=== PATIENT | male | born 1980 | race Caucasian/White ===

== ENCOUNTER 2022-10-20 09:00 | Day surgery (SDC) | payer OTHER ==
[2022-10-19 12:45] VITALS: BMI 29.6
[2022-10-20] MEDS ORDERED: Oxymetazoline HCl 0.05% (30 ML BOT) ONE (09:46)
[2022-10-20] MEDS ORDERED: Midazolam HCl 2 mg/2 ml Vial ONE (10:40)
[2022-10-20] MEDS ORDERED: Lidocaine 1% (PF) 30 ML VIAL ONE (10:52)
[2022-10-20] MEDS ORDERED: fentaNYL PF 100 MCG/2 ML SYRINGE ONE (10:57)
[2022-10-20] MEDS ORDERED: NEOSTIGMINE 3 MG/3 ML SYR 3 MG/3 ML SYRINGE ONE (11:07)
[2022-10-20] MEDS ORDERED: PROPOFOL 200 MG/20 ML VIAL ONE (11:07)
[2022-10-20] MEDS ORDERED: Rocuronium Bromide 10 MG/ML (10ML VIAL) ONE (11:07)
[2022-10-20] MEDS ORDERED: Glycopyrrolate 0.2 MG/ML 5 ML SYRINGE ONE (11:07)
[2022-10-20] MEDS ORDERED: Ondansetron PF 4 MG/2 ML Vial ONE (11:07)
[2022-10-20] MEDS ORDERED: FENTANYL 50 MCG/ML 1 ML VIAL ONE ×4 (11:43→12:20)
[2022-10-20] MEDS ORDERED: HYDROcodone/Acetaminophen 5/325 mg Tablet ONE (13:34)
== END 2022-10-20 13:45 | disposition home or self-care (01) ==
LOC: SDC 09:00
PROVIDERS: ATTEND Otolaryngology Plastic Surgery within the Head & Neck
PROC: 095L0ZZ Destruction of Nasal Turbinate, Open Approach (ICD-10-PCS; principal; 2022-10-20)
PROC: 09SM0ZZ Reposition Nasal Septum, Open Approach (ICD-10-PCS; principal; 2022-10-20)
PROC: 0NSB34Z Reposition Nasal Bone with Internal Fixation Device, Percutaneous Approach (ICD-10-PCS; principal; 2022-10-20)
DX: J34.2 Deviated nasal septum (principal); J34.3 Hypertrophy of nasal turbinates; S02.2XXA Fracture of nasal bones, initial encounter for closed fracture; J34.89 Other specified disorders of nose and nasal sinuses; E11.9 Type 2 diabetes mellitus without complications; G47.30 Sleep apnea, unspecified; F17.220 Nicotine dependence, chewing tobacco, uncomplicated; Z79.84 Long term (current) use of oral hypoglycemic drugs; Z79.899 Other long term (current) drug therapy; W22.8XXA Striking against or struck by other objects, initial encounter; Y99.0 Civilian activity done for income or pay
CPT/HCPCS: J2001; J2250; J2405; J2704; J3010